=== PATIENT | female | born 1945 ===

== ENCOUNTER 2023-10-03 11:45 | Inpatient (IN) | payer OTHER ==
[~2023-10-03] VITALS: Ht 144.8 cm; Wt 82.6 kg
[2023-10-03] MEDS ORDERED: METFORMIN HCL500 M3 PO (15:32)
[2023-10-03] MEDS ORDERED: COZAAR100 MG PO (15:32)
[2023-10-03] MEDS ORDERED: HYDROCHLOROTHIA25 MG PO (15:33)
[2023-10-09] MEDS ORDERED: METRONIDAZOLE/SODIUM CHLORIDE 500 MG/100 ML PIGGYBACK IV ONE (07:38)
[2023-10-09] MEDS ORDERED: CEFTRIAXONE SODIUM 2,000 MG VIAL ONE (07:38)
[2023-10-09] MEDS ORDERED: SUGAMMADEX SODIUM 200 MG/2 ML VIAL IV ONE (11:55)
[2023-10-09] MEDS ORDERED: ONDANSETRON HCL 2 MG/ML VIAL IV PRN (12:30)
[2023-10-09] MEDS ORDERED: MORPHINE SULFATE 4 MG/ML CARTRIDGE IV PRN (12:30)
[2023-10-09] MEDS ORDERED: OxyCODONE HCL 5 MG TABLET (ROXICODONE) PO PRN (12:30)
[2023-10-09] MEDS ORDERED: RINGERS SOLUTION,LACTATED 1,000 ML IV SCH (12:30)
[2023-10-09] MEDS ORDERED: DEXTROSE 50 % IN WATER 0.5 G/ML DISP.SYRIN IV PRN ×2 (12:30→13:45)
[2023-10-09] MEDS ORDERED: ENALAPRILAT DIHYDRATE 1.25 MG/ML VIAL IV PRN (13:45)
[2023-10-09] MEDS ORDERED: INSULIN LISPRO 1,000 UNIT/10 ML UNITS SUBCUTANEO PRN (13:45)
[2023-10-09] MEDS ORDERED: ACETAMINOPHEN 500 MG GEL..CAP PO SCH (14:00)
[2023-10-09] MEDS ORDERED: LEVALBUTEROL HCL 0.63 MG/3 ML SOLUTION IH SCH (14:00)
[2023-10-09] MEDS ORDERED: POLYETHYLENE GLYCOL 3350 17 GM BLIST.PACK PO SCH (17:00)
[2023-10-09] MEDS ORDERED: GABAPENTIN 300 MG CAPSULE PO SCH (17:00)
[2023-10-09] MEDS ORDERED: HYOSCYAMINE SULFATE 0.125 MG TAB.SUBL SL SCH (17:00)
[2023-10-09] MEDS ORDERED: ONDANSETRON HCL 2 MG/ML VIAL ONE (17:02)
[2023-10-09] MEDS ORDERED: HYOSCYAMINE SULFATE 0.125 MG TAB.SUBL ONE (17:40)
[2023-10-09] MEDS ORDERED: GABAPENTIN 300 MG CAPSULE PO ONE (17:41)
[2023-10-09 17:46] LABS: HEMATOCRIT 34.9 % (36.0-45.00); HEMOGLOBIN 11.4 g/dL (12.0-15.00); MEAN CELL VOLUME 90.5 fL (80.00-100.00); MEAN CORPUSCULAR HEMOGLOBIN 29.5 pg (27.00-32.0); MEAN CORPUSCULAR HGB CONC 32.5 g/dl (32.0-36.0); PLATELET COUNT 309 K/uL (150-450); RED BLOOD COUNT 3.86 M/uL (4.00-6.00); RED CELL DISTRIBUTION WIDTH 14.1 % (11.5-14.5)
[2023-10-09] MEDS ORDERED: ENALAPRILAT DIHYDRATE 1.25 MG/ML VIAL IV ONE ×2 (17:59→20:35)
[2023-10-09 18:12] LABS: ALBUMIN 3.3 gm/dL (3.4-5.0); CALCIUM 9.3 mg/dL (8.5-10.1); CREATININE SERUM 0.7 mg/dL (0.55-1.02); GFR 80.51; MAGNESIUM 1.7 mg/dL (1.8-2.4); PHOSPHOROUS 3.6 mg/dL (2.5-4.9); POTASSIUM 4.51 mEq/L (3.5-5.1)
[2023-10-09] MEDS ORDERED: FAMOTIDINE/PF 20 MG/2 ML VIAL ONE (20:36)
[2023-10-09] MEDS ORDERED: ACETAMINOPHEN 500 MG GEL..CAP PO ONE (20:36)
[2023-10-09] MEDS ORDERED: FAMOTIDINE/PF 20 MG/2 ML VIAL IV PUSH SCH (21:00)
[2023-10-10 07:43] LABS: HEMATOCRIT 29.2 % (36.0-45.00); HEMOGLOBIN 9.8 g/dL (12.0-15.00); MEAN CELL VOLUME 89.3 fL (80.00-100.00); MEAN CORPUSCULAR HGB CONC 33.6 g/dl (32.0-36.0); PLATELET COUNT 253 K/uL (150-450); RED BLOOD COUNT 3.27 M/uL (4.00-6.00)
[2023-10-10 08:08] LABS: ALBUMIN 2.7 gm/dL (3.4-5.0); CALCIUM 8.9 mg/dL (8.5-10.1); CREATININE SERUM 0.61 mg/dL (0.55-1.02); GFR 94.37; MAGNESIUM 1.8 mg/dL (1.8-2.4); POTASSIUM 4.34 mEq/L (3.5-5.1)
[2023-10-10] MEDS ORDERED: SOD FERRIC GLUC COMPLX/SUCROSE 62.5 MG in 0.9 % SODIUM CHLORIDE 50 ML IV SCH (11:35)
[2023-10-10] MEDS ORDERED: Cyanocobalamin/Mecobalamin 1 TAB.SL SL SCH (11:37)
[2023-10-10] MEDS ORDERED: SOD FERRIC GLUC COMPLX/SUCROSE 62.5 MG/5 ML AMPUL IV ONE (12:44)
[2023-10-10] MEDS ORDERED: CLOTRIMAZOLE/BETAMETHASONE DIP 15 GM TUBE TOP SCH (13:00)
[2023-10-10] MEDS ORDERED: HYDROCHLOROTHIAZIDE 25 MG TABLET PO SCH (17:00)
[2023-10-10] MEDS ORDERED: LOSARTAN POTASSIUM 100 MG TABLET PO SCH (17:00)
[2023-10-10] MEDS ORDERED: ENOXAPARIN SODIUM 40 MG/0.4 ML SYRINGE SUBCUTANEO SCH (17:00)
[2023-10-10] MEDS ORDERED: LEVALBUTEROL HCL 0.63 MG/3 ML SOLUTION IH SCH (17:00)
[2023-10-11 06:19] LABS: HEMATOCRIT 26.9 % (36.0-45.00); HEMOGLOBIN 9.2 g/dL (12.0-15.00); MEAN CELL VOLUME 88.3 fL (80.00-100.00); MEAN CORPUSCULAR HEMOGLOBIN 30.1 pg (27.00-32.0); MEAN CORPUSCULAR HGB CONC 34.1 g/dl (32.0-36.0); PLATELET COUNT 235 K/uL (150-450); RED BLOOD COUNT 3.05 M/uL (4.00-6.00); RED CELL DISTRIBUTION WIDTH 14.1 % (11.5-14.5)
[2023-10-11 06:45] LABS: CALCIUM 8.8 mg/dL (8.5-10.1); CREATININE SERUM 0.54 mg/dL (0.55-1.02); GFR 108.62; MAGNESIUM 1.8 mg/dL (1.8-2.4); PHOSPHOROUS 2.4 mg/dL (2.5-4.9); POTASSIUM 3.87 mEq/L (3.5-5.1)
[2023-10-11] MEDS ORDERED: HYOSCYAMINE0.125 M2 PO (08:55)
[2023-10-11] MEDS ORDERED: NEURONTIN300 MG PO (08:55)
[2023-10-11] MEDS ORDERED: INTESTINEX680 M1 PO (08:55)
[2023-10-11] MEDS ORDERED: ENOXAPARIN SODIUM 40 MG/0.4 ML SYRINGE SUBCUTANEO SCH (09:00)
[2023-10-11] MEDS ORDERED: NAPH,MB-DB/K PH,MBDB 1 PKT PACKET PO NR (09:45)
[2023-10-11] MEDS ORDERED: POTASSIUM PHOS,M-BASIC-D-BASIC 3 MM/ML VIAL IV ONE (12:00)
== END 2023-10-11 11:53 | disposition home or self-care (01) | DRG 330 ==
LOC: O/R 10-09 06:16 → SURH 10-09 11:45 → SURG 10-09 13:59 → SURH 10-09 16:30 → SURG 10-11 11:53
PROVIDERS: Internal Medicine Geriatric Medicine; ADMIT Surgery; ATTEND Surgery
PROC: 07BB4ZZ Excision of Mesenteric Lymphatic, Percutaneous Endoscopic Approach (ICD-10-PCS; 2023-10-09)
PROC: 0DBU4ZZ Excision of Omentum, Percutaneous Endoscopic Approach (ICD-10-PCS; 2023-10-09)
PROC: 0DTF4ZZ Resection of Right Large Intestine, Percutaneous Endoscopic Approach (ICD-10-PCS; principal; 2023-10-09 16:30)
DX: C18.4 Malignant neoplasm of transverse colon (principal); K92.1 Melena; R59.0 Localized enlarged lymph nodes; I10 Essential (primary) hypertension